=== PATIENT | male | born 1940 | race Caucasian/White ===

== ENCOUNTER → 2017-02-18 14:51 | Outpatient (CLI) | payer MEDICARE, BC | END | disposition home or self-care (01) | LOC: D.MRI 14:51 | DX: G31.84 Mild cognitive impairment of uncertain or unknown etiology (principal) ==

== ENCOUNTER → 2019-11-29 12:25 | Outpatient (CLI) | payer MEDICARE, BC ==
[2019-08-12 10:07] VITALS: BMI 23.1
[~2019-11-29 12:25] MED LIST: BAYER CHEWABLE81 MG PO; HYDROCODON-ACE1 EAC7 PO; NAMENDA10 MG PO; NAMZARIC PO; PRAVACHOL20 MG PO; VIT D 3 PO
== END | disposition home or self-care (01) ==
LOC: D.CT 12:25
PROVIDERS: ATTEND Family Medicine
DX: S06.5X0A Traumatic subdural hemorrhage without loss of consciousness, initial encounter (principal)

== ENCOUNTER 2020-01-27 11:21 | Emergency (ER) | payer MEDICARE, BC ==
[2019-08-12 10:07] VITALS: Ht 185.4 cm; Wt 77.3 kg
[~2020-01-27] VITALS: Ht 185.4 cm; Wt 77.3 kg
[2020-01-27 12:51] LABS: BASOPHILS 0.2 % (0-2); EOSINOPHILS 0.1 % (0-7); HEMATOCRIT 48.4 % (42.0-54.0); HEMOGLOBIN 16.3 g/dL (13.5-17.5); IMMATURE GRANULOCYTES 0.2 % (0-5); LYMPHOCYTES 5.7 % (15-50); MCH 30.8 pg (26.0-34.0); MCHC 33.7 g/dL (31.0-37.0); MCV 91.3 fL (80.0-100.0); MEAN PLATELET VOLUME 10.3 fL (7.4-10.4); MONOCYTES 3.7 % (2-11); NEUTROPHILS 90.1 % (40-80); PLATELET COUNT 187 10x3/uL (130-400); RDW 12.7 % (11.5-14.5); WBC 10.3 10x3/uL (4.8-10.8)
[2020-01-27 12:59] LABS: ANION GAP 11.4 mmol/L (8-16); CALCIUM 9.3 mg/dL (8.5-10.1); CARBON DIOXIDE 29.7 mmol/L (21.0-32.0); CREATININE - SERUM 1.2 mg/dL (0.6-1.3); POTASSIUM - SERUM 4.1 mmol/L (3.5-5.1)
[2020-01-27 13:05] LABS: BILIRUBIN - TOTAL 0.75 mg/dL (0.2-1.3); PROTEIN - SERUM 7.3 g/dL (6.4-8.2)
[2020-01-27 13:12] LABS: BILIRUBIN NEGATIVE (NEGATIVE); GLUCOSE NEGATIVE (NEGATIVE); KETONE NEGATIVE (NEGATIVE); NITRITE NEGATIVE (NEGATIVE); UROBILINOGEN NORMAL (NORMAL)
[2020-01-27 13:15] LABS: BACTERIA FEW /hpf (NEGATIVE); EPITHELIAL CELLS 0-5 /hpf (0-5); RED CELLS - URINE 0-5 /hpf (0-5); WHITE CELLS - URINE OCC /hpf (NEGATIVE)
[2020-01-27] MEDS ORDERED: KEFLEX250 MG PO (14:30)
[2020-01-27 15:02] VITALS: BP 152/68
== END 2020-01-27 15:03 | disposition home or self-care (01) ==
LOC: D.ER 11:21
PROVIDERS: Family Medicine
DX: S01.81XA Laceration without foreign body of other part of head, initial encounter (principal); S02.2XXA Fracture of nasal bones, initial encounter for closed fracture; W19.XXXA Unspecified fall, initial encounter; Y93.9 Activity, unspecified; Y92.9 Unspecified place or not applicable

== ENCOUNTER 2020-11-04 10:58 | Emergency (ER) | payer MEDICARE, BC ==
[~2020-11-04] VITALS: Ht 185.4 cm; Wt 68.2 kg
[~2020-11-04 10:58] MED LIST changes: +KEFLEX250 MG PO
[2020-11-04 11:01] VITALS: Ht 185.4 cm; Wt 68.2 kg
[2020-11-04] MEDS ORDERED: BETAPACE 80 MG80 MG PO (11:04)
[2020-11-04 13:39] VITALS: BP 165/62
== END 2020-11-04 13:39 | disposition home or self-care (01) ==
LOC: D.ER 10:58
DX: G30.9 Alzheimer's disease, unspecified (principal); F02.80 Dementia in other diseases classified elsewhere, unspecified severity, without behavioral disturbance, psychotic disturbance, mood disturbance, and anxiety; R53.1 Weakness

== ENCOUNTER 2020-11-08 22:00 | Emergency (ER) | payer MEDICARE, BC ==
[~2020-11-08] VITALS: Ht 185.4 cm; Wt 68.2 kg
[~2020-11-08 22:00] MED LIST changes: +BETAPACE 80 MG80 MG PO
[2020-11-08 22:05] VITALS: Ht 185.4 cm; Wt 68.2 kg
[2020-11-08 22:40] LABS: BILIRUBIN NEGATIVE (NEGATIVE); KETONE NEGATIVE (NEGATIVE); NITRITE NEGATIVE (NEGATIVE); UROBILINOGEN NORMAL mg/dL (< 2)
[2020-11-08 22:41] LABS: UDS - AMPHET NEGATIVE QUAL (NEGATIVE); UDS - BARB NEGATIVE QUAL (NEGATIVE); UDS - BENZO NEGATIVE QUAL (NEGATIVE); UDS - COCAINE NEGATIVE QUAL (NEGATIVE); UDS - OPIATE NEGATIVE QUAL (NEGATIVE); UDS - PCP NEGATIVE QUAL (NEGATIVE); UDS - THC NEGATIVE QUAL (NEGATIVE)
[2020-11-08 22:52] LABS: BASOPHILS 0.1 % (0-2); EOSINOPHILS 0.1 % (0-7); HEMATOCRIT 43.7 % (42.0-54.0); HEMOGLOBIN 14.3 g/dL (13.5-17.5); IMMATURE GRANULOCYTES 0.2 % (0-5); LYMPHOCYTE ABS# 0.62 10x3/uL (1.32-3.57); MCHC 32.7 g/dL (31.0-37.0); MCV 91.6 fL (80.0-100.0); MEAN PLATELET VOLUME 9.6 fL (7.4-10.4); NEUTROPHIL ABS# 13.81 10x3/uL (1.78-5.38); NEUTROPHILS 88.6 % (40-80); PLATELET COUNT 201 10x3/uL (130-400); RBC 4.77 10x6/uL (4.20-6.10); WBC 15.6 10x3/uL (4.8-10.8)
[2020-11-08 23:04] LABS: CALC OSMOLALITY 281 mosm/kg (275-300); CALCIUM 8.8 mg/dL (8.5-10.1); CARBON DIOXIDE 28.2 mmol/L (21.0-32.0); CHLORIDE - SERUM 104 mmol/L (98-107); CREATININE - SERUM 1.1 mg/dL (0.6-1.3); GLUCOSE 104 mg/dL (74-106); POTASSIUM - SERUM 3.9 mmol/L (3.5-5.1); SODIUM 141 mmol/L (136-145); UREA NITROGEN 14 mg/dL (7-18); eGFR NON AFRICAN AMERICAN 68 mL/min (90-120)
[2020-11-08 23:06] LABS: APTT 35.3 SECONDS (22.8-39.4); INR 1.23 (0.85-1.17); PROTIME 14.3 SECONDS (11.6-15.0)
[2020-11-08 23:23] LABS: ALKALINE PHOSPHATASE 100 U/L (30-120); ALT (SGPT) 18 U/L (10-68); BILIRUBIN - TOTAL 0.88 mg/dL (0.2-1.3); CKMB 0.6 U/L (0.0-3.6); CREATINE KINASE 35 UL (21-232); PROTEIN - SERUM 6.6 g/dL (6.4-8.2); THYROID STIMULATING HORMONE 1.37 uIU/mL (0.36-3.74)
[2020-11-08 23:26] LABS: TROPONIN-I < 0.017 ng/mL (0.000-0.060)
[2020-11-09 01:22] VITALS: BP 161/76
[2020-11-09] MEDS ORDERED: NIASPAN500 MG PO (21:44)
[2020-11-09] MEDS ORDERED: NAMZARIC 7 MG-1 EACH PO (23:58)
== END 2020-11-09 00:37 | disposition home or self-care (01) ==
LOC: D.ER 22:00
PROVIDERS: Family Medicine
DX: R53.83 Other fatigue (principal); G30.9 Alzheimer's disease, unspecified; F02.80 Dementia in other diseases classified elsewhere, unspecified severity, without behavioral disturbance, psychotic disturbance, mood disturbance, and anxiety

== ENCOUNTER 2020-11-09 15:48 | Inpatient (IN) | payer MEDICARE, BC ==
[~2020-11-09] VITALS: Ht 185.4 cm; Wt 66.0 kg
[2020-11-09 16:39] LABS: BASOPHILS 0.1 % (0-2); EOSINOPHILS 0.1 % (0-7); HEMOGLOBIN 14.8 g/dL (13.5-17.5); IMMATURE GRANULOCYTES 0.3 % (0-5); LYMPHOCYTE ABS# 0.34 10x3/uL (1.32-3.57); MCH 29.8 pg (26.0-34.0); MCHC 32.9 g/dL (31.0-37.0); MCV 90.7 fL (80.0-100.0); MEAN PLATELET VOLUME 9.8 fL (7.4-10.4); MONOCYTES 6.6 % (2-11); NEUTROPHIL ABS# 15.16 10x3/uL (1.78-5.38); NEUTROPHILS 90.9 % (40-80); PLATELET COUNT 190 10x3/uL (130-400); RBC 4.96 10x6/uL (4.20-6.10); RDW 13.1 % (11.5-14.5); WBC 16.7 10x3/uL (4.8-10.8)
[2020-11-09 16:45] LABS: INR 1.32 (0.85-1.17); PROTIME 15.2 SECONDS (11.6-15.0)
[2020-11-09 16:46] LABS: APTT 36.6 SECONDS (22.8-39.4)
[2020-11-09 16:48] LABS: CALC OSMOLALITY 274 mosm/kg (275-300); CALCIUM 8.8 mg/dL (8.5-10.1); CARBON DIOXIDE 29.3 mmol/L (21.0-32.0); CHLORIDE - SERUM 99 mmol/L (98-107); CREATININE - SERUM 1.1 mg/dL (0.6-1.3); GLUCOSE 117 mg/dL (74-106); POTASSIUM - SERUM 3.6 mmol/L (3.5-5.1); SODIUM 137 mmol/L (136-145); UREA NITROGEN 13 mg/dL (7-18); eGFR NON AFRICAN AMERICAN 68 mL/min (90-120)
[2020-11-09 17:03] LABS: ALBUMIN 3.1 g/dL (3.4-5.0); ALKALINE PHOSPHATASE 107 U/L (30-120); ALT (SGPT) 18 U/L (10-68); BILIRUBIN - TOTAL 1.29 mg/dL (0.2-1.3); CKMB 1.3 U/L (0.0-3.6); CREATINE KINASE 222 UL (21-232); PROTEIN - SERUM 6.9 g/dL (6.4-8.2)
[2020-11-09 17:05] LABS: TROPONIN-I < 0.017 ng/mL (0.000-0.060)
[2020-11-09 17:44] LABS: UDS - AMPHET NEGATIVE QUAL (NEGATIVE); UDS - BARB NEGATIVE QUAL (NEGATIVE); UDS - BENZO NEGATIVE QUAL (NEGATIVE); UDS - COCAINE NEGATIVE QUAL (NEGATIVE); UDS - OPIATE NEGATIVE QUAL (NEGATIVE); UDS - PCP NEGATIVE QUAL (NEGATIVE); UDS - THC NEGATIVE QUAL (NEGATIVE)
[2020-11-09 17:56] LABS: BILIRUBIN NEGATIVE (NEGATIVE); KETONE NEGATIVE (NEGATIVE); NITRITE POSITIVE (NEGATIVE); UROBILINOGEN NORMAL mg/dL (< 2)
[2020-11-09 18:06] LABS: WHITE CELLS - URINE 25-50 HPF (0-1)
[2020-11-09 18:07] LABS: BACTERIA MANY HPF (NONE SEEN); SQUAMOUS EPITHELIAL NONE SEEN HPF (0-4)
[2020-11-09 21:41] VITALS: BP 183/77
[2020-11-09] MEDS ORDERED: NIASPAN500 MG PO (21:44)
[2020-11-09] MEDS ORDERED: NAMZARIC 7 MG-1 EACH PO (23:58)
[2020-11-10 01:04] VITALS: BP 127/57
--- NOTE | 2020-11-10 04:22 | NUR ---
TEMP 100.4 - PT UNABLE TO SWALLOW PILLS. GAVE PT TYLENOL 650 MG CRUSHED IN APPLESAUCE. PT TOLERATED WELL. PT INCONTINENT OF BLADDER. BED CHANGED. WILL CONTINUE TO MONITOR. AT BEDSIDE.
[2020-11-10 04:51] VITALS: BMI 19.2
[2020-11-10 05:25] VITALS: BP 147/56
[2020-11-10 06:41] LABS: BASOPHILS 0.1 % (0-2); EOSINOPHILS 0 % (0-7); HEMATOCRIT 38.3 % (42.0-54.0); HEMOGLOBIN 12.6 g/dL (13.5-17.5); IMMATURE GRANULOCYTES 0.2 % (0-5); LYMPHOCYTE ABS# 0.47 10x3/uL (1.32-3.57); LYMPHOCYTES 3.7 % (15-50); MCH 29.6 pg (26.0-34.0); MCHC 32.9 g/dL (31.0-37.0); MCV 90.1 fL (80.0-100.0); MEAN PLATELET VOLUME 10.3 fL (7.4-10.4); MONOCYTES 4.3 % (2-11); NEUTROPHIL ABS# 11.49 10x3/uL (1.78-5.38); NEUTROPHILS 91.7 % (40-80); PLATELET COUNT 182 10x3/uL (130-400); RBC 4.25 10x6/uL (4.20-6.10); RDW 13.2 % (11.5-14.5)
[2020-11-10 06:42] LABS: WBC 12.5 10x3/uL (4.8-10.8)
[2020-11-10 06:50] LABS: APTT 39.9 SECONDS (22.8-39.4); INR 1.43 (0.85-1.17); PROTIME 16.2 SECONDS (11.6-15.0)
[2020-11-10 07:20] LABS: ALBUMIN 2.5 g/dL (3.4-5.0); ALKALINE PHOSPHATASE 91 U/L (30-120); ALT (SGPT) 16 U/L (10-68); BILIRUBIN - TOTAL 0.85 mg/dL (0.2-1.3); CALC OSMOLALITY 270 mosm/kg (275-300); CALCIUM 8.3 mg/dL (8.5-10.1); CARBON DIOXIDE 25.1 mmol/L (21.0-32.0); CHLORIDE - SERUM 101 mmol/L (98-107); CKMB 0.5 U/L (0.0-3.6); CREATINE KINASE 167 UL (21-232); GLUCOSE 94 mg/dL (74-106); POTASSIUM - SERUM 3.5 mmol/L (3.5-5.1); PRO BNP 1546 pg/mL (0-450); PROTEIN - SERUM 5.9 g/dL (6.4-8.2); SODIUM 136 mmol/L (136-145); UREA NITROGEN 11 mg/dL (7-18); eGFR NON AFRICAN AMERICAN 76 mL/min (90-120)
[2020-11-10 11:28] VITALS: BP 122/52
--- NOTE | 2020-11-10 13:40 | HP ---
PATIENT: MELITA BALDERRAMA MEDICAL RECORD: [id number] ACCOUNT: [id number] LOCATION:D.[id number] : 40 ADMISSION DATE: 11/09/20 PCP: DONALDO LIZAMA MD HISTORY AND PHYSICAL EXAMINATION DATE OF ADMISSION: 11/09/2020 CHIEF COMPLAINT: Fever, altered mental status. HISTORY OF PRESENT ILLNESS: This is an 80-year-old white male brought in by his . This is the third ER visit in approximately 1 week. The workup in the ER showed yellow cloudy urine with 1+ blood, positive nitrite and leukocyte esterase and many bacteria, and no epithelial cells. CBC showed a white count of 16,700. Rest of the lab was fairly normal. Chest x-ray was unremarkable. CT of abdomen and pelvis with IV contrast showed prostatomegaly and moderate thickening of the urinary bladder consistent with cystitis, he is admitted. His states he is looking and feeling better already. PAST MEDICAL HISTORY: Dementia, hypertension, hyperlipidemia, benign prostatic hypertrophy, and atrial fibrillation. PAST SURGICAL HISTORY: Hernia repair and right knee surgery. HOME MEDICATIONS: Sotalol 80 mg 1/2 twice a day, pravastatin 20 mg once a day, niacin daily, aspirin daily, Namzaric capsule once a day. ALLERGIES: SULFA. 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 HABITS: No tobacco, alcohol or drugs. FAMILY HISTORY: Significant for hypertension. REVIEW OF SYSTEMS: GENERAL: No major weight changes. HEENT: No particular sinus or allergy problems. RESPIRATORY No history of asthma, emphysema or pneumonia. CARDIAC: He has history of atrial fibrillation, no medicines. GASTROINTESTINAL: No diarrhea, constipation, or heartburn. GENITOURINARY: He has history of BPH. MUSCULOSKELETAL: No significant joint aches and pains. NEUROLOGICAL: No migraines. No seizures, but he does have dementia. PSYCHIATRIC: No depression or melancholia, but he does have dementia. PHYSICAL EXAMINATION: VITAL SIGNS: Temperature in the ER when he got there was 101.5, blood pressure was 178/78. Earlier this morning at 5:25, his temperature was 100.4, currently his temperature is 97.9, pulse 77, respirations 19, blood pressure 122/52, O2 sat 97%. GENERAL: He is awake. He is alert. He has slowed mentation consistent with dementia. HEENT: Grossly within normal limits. NECK: Supple. No JVD or bruit. HISTORY AND PHYSICAL [id number] MELITA BALDERRAMA HEART: Regular rate and rhythm at this time. LUNGS: Fairly clear. ABDOMEN: Soft, flat, nontender. EXTREMITIES: No edema. NEUROLOGIC: Cranial nerves are grossly intact. LABORATORY DATA: Urinalysis shows yellow cloudy urine with 1+ blood, positive nitrite, 1+ leukocyte esterase, 5-10 red blood cells, 25-50 white blood cells, no epithelial cells and many bacteria. Urine culture is obtained. Urine drug screen is negative. CBC with a white count of 16,700, hemoglobin 14.8, hematocrit 45.6, 90% polys. Basic metabolic panel: Sodium 137, potassium 3.6, chloride 99, CO2 29.3, BUN 13, creatinine 1.1, glucose 117, calcium 8.8. Liver functions are normal. INR 1.32. Lactic acid 1.6. Troponin less than 0.017. Magnesium 2.6. DIAGNOSTIC DATA: Chest x-ray shows nothing acute. CT abdomen and pelvis with IV contrast shows prostatomegaly. There is moderate thickening of the urinary bladder. EKG, right bundle branch block. ASSESSMENT: 1. Urinary tract infection causing encephalopathy. 2. Cystitis. 3. Underlying dementia. 4. History of BPH. PLAN: He is started on IV antibiotics. Blood and urine cultures are obtained. We will check a PSA today. Other tests and procedures as warranted. TRANSINT:[id number] Voice Confirmation ID: [id number] DOCUMENT ID: [id number] TEDDY SALDANA MD at 1340 CC: [id number] DICTATION DATE: 11/10/20 1234 CLIENT LIAISON: 11/10/20 1316 ADM IN [place] [id number] [place] [address]
[2020-11-10 18:48] VITALS: BP 119/53
[2020-11-10 22:28] VITALS: BP 116/66
[2020-11-11 09:33] VITALS: BP 126/79
[2020-11-11 09:38] LABS: BASOPHILS 0.2 % (0-2); EOSINOPHILS 0.2 % (0-7); HEMATOCRIT 39.3 % (42.0-54.0); HEMOGLOBIN 12.7 g/dL (13.5-17.5); IMMATURE GRANULOCYTES 0.2 % (0-5); LYMPHOCYTE ABS# 0.31 10x3/uL (1.32-3.57); LYMPHOCYTES 6.1 % (15-50); MCH 29.5 pg (26.0-34.0); MCHC 32.3 g/dL (31.0-37.0); MCV 91.2 fL (80.0-100.0); MEAN PLATELET VOLUME 10.4 fL (7.4-10.4); MONOCYTES 6.5 % (2-11); NEUTROPHIL ABS# 4.43 10x3/uL (1.78-5.38); NEUTROPHILS 86.8 % (40-80); PLATELET COUNT 154 10x3/uL (130-400); RBC 4.31 10x6/uL (4.20-6.10); RDW 13.2 % (11.5-14.5)
[2020-11-11 09:43] LABS: WBC 5.1 10x3/uL (4.8-10.8)
[2020-11-11 09:54] LABS: ANION GAP 11.5 mmol/L (8-16); CALCIUM 8.2 mg/dL (8.5-10.1); CREATININE - SERUM 1.1 mg/dL (0.6-1.3); POTASSIUM - SERUM 3.5 mmol/L (3.5-5.1)
[2020-11-11 13:56] VITALS: BP 179/70
[2020-11-11 15:27] VITALS: Ht 185.4 cm; Wt 66.0 kg
[2020-11-11 17:05] VITALS: BP 134/68
[2020-11-11 20:00] VITALS: BP 166/69
[2020-11-12] VITALS: BP 142/76
[2020-11-12 04:00] VITALS: BP 134/66
--- NOTE | 2020-11-12 07:13 | NUR ---
PATIENT SPOUSE CAME TO DESK IRST THING THIS MORNING DURING REPORT AND STATE THAT PATIENT DOCTOR IS DR LIZAMA AND ALTHOUGH PATIENTIS ADMITTED TO DR SALDANA THE DOCTORS HAVE DIFFERENT THOUGHTS OF TREATING HER , STATES PATIENT DOES NOT TAKE NAMENDA OR ARICEPT AND SHE WILL TALK TO HIM ABOUT IT THIS MORNING. INFORMED PATIENT SPOUSE THAT BOTH DR SALDANA AND DR LIZAMA SHOULD BE HERE THIS MORNING AND WILL GLADLY SPEAK WITH HER
[2020-11-12 08:02] VITALS: BP 128/62
[2020-11-12 08:29] LABS: BASOPHILS 0 % (0-2); EOSINOPHILS 0 % (0-7); HEMATOCRIT 37.7 % (42.0-54.0); HEMOGLOBIN 12.3 g/dL (13.5-17.5); IMMATURE GRANULOCYTES 0.2 % (0-5); LYMPHOCYTE ABS# 0.54 10x3/uL (1.32-3.57); LYMPHOCYTES 11.1 % (15-50); MCH 29.2 pg (26.0-34.0); MCHC 32.6 g/dL (31.0-37.0); MCV 89.5 fL (80.0-100.0); MEAN PLATELET VOLUME 10.5 fL (7.4-10.4); MONOCYTES 7.2 % (2-11); NEUTROPHIL ABS# 3.95 10x3/uL (1.78-5.38); NEUTROPHILS 81.5 % (40-80); PLATELET COUNT 165 10x3/uL (130-400); RBC 4.21 10x6/uL (4.20-6.10); RDW 13.3 % (11.5-14.5); WBC 4.9 10x3/uL (4.8-10.8)
[2020-11-12 09:03] LABS: CALC OSMOLALITY 286 mosm/kg (275-300); CALCIUM 8.2 mg/dL (8.5-10.1); CARBON DIOXIDE 24.6 mmol/L (21.0-32.0); CHLORIDE - SERUM 108 mmol/L (98-107); CREATININE - SERUM 0.9 mg/dL (0.6-1.3); GLUCOSE 94 mg/dL (74-106); POTASSIUM - SERUM 3.9 mmol/L (3.5-5.1); SODIUM 143 mmol/L (136-145); UREA NITROGEN 18 mg/dL (7-18); eGFR NON AFRICAN AMERICAN 86 mL/min (90-120)
--- NOTE | 2020-11-12 10:33 | NUR ---
PATIENT TOLD SPUSE HE NEEDS TO USE RESTROOM AND ATTEMPTED TO GET OUT OF BED, EXPLAINED THAT I AM UNABLE TO GET HIM UP UNTIL PHYSIAL THERAPY EVALUATES HIM. PATIENT HAD ALEADY VOIDED, PLACED PATIENT ON BED CHERRY AND ASKED HIM TO CALL WHEN FINISHED, CAME BACK TO CHECK ON PATIENT 5 MINUTES LATER AND HE WAS ASLEEP, TOOK PATIENT OFF BEDPAN. CONTINUE WITH PLAN OF CARE
[2020-11-12 13:19] VITALS: BP 112/58
[2020-11-12 17:07] VITALS: BP 144/66
[2020-11-12 20:00] VITALS: BP 138/66
--- NOTE | 2020-11-12 20:00 | NUR ---
PT SITTING UP IN BED WITHOUT DISTRESS, AT BEDSIDE. PT WITH SLIGHT TEMP, TYLENOL GIVEN WHOLE IN APPLESAUCE WITH HS MEDS. DENIES OTHER NEEDS. CL IN REACH
--- NOTE | 2020-11-12 21:30 | NUR ---
PT INCONTINENT OF URINE. JUN CARE PROVIDED AND BRIEF CHANGED. AND PT DENY OTHER NEEDS. CL IN REACH
[2020-11-13 04:00] VITALS: BP 140/68
[2020-11-13 05:34] LABS: BASOPHILS 0.2 % (0-2); EOSINOPHILS 0.4 % (0-7); HEMATOCRIT 38.8 % (42.0-54.0); HEMOGLOBIN 12.4 g/dL (13.5-17.5); IMMATURE GRANULOCYTES 0.4 % (0-5); LYMPHOCYTE ABS# 0.71 10x3/uL (1.32-3.57); LYMPHOCYTES 13.1 % (15-50); MCH 29.2 pg (26.0-34.0); MEAN PLATELET VOLUME 10.2 fL (7.4-10.4); MONOCYTES 10.2 % (2-11); NEUTROPHIL ABS# 4.09 10x3/uL (1.78-5.38); NEUTROPHILS 75.7 % (40-80); PLATELET COUNT 178 10x3/uL (130-400); RBC 4.24 10x6/uL (4.20-6.10); RDW 13.3 % (11.5-14.5); WBC 5.4 10x3/uL (4.8-10.8)
[2020-11-13 05:46] LABS: ANION GAP 11.2 mmol/L (8-16); CALCIUM 8.2 mg/dL (8.5-10.1); CARBON DIOXIDE 28.9 mmol/L (21.0-32.0); CREATININE - SERUM 1.1 mg/dL (0.6-1.3); POTASSIUM - SERUM 4.1 mmol/L (3.5-5.1)
[2020-11-13 05:47] LABS: MCV 91.5 fL (80.0-100.0)
--- NOTE | 2020-11-13 07:51 | NUR ---
RECIEVED BEDSIDE REPORT, AROUSES TO VOICE. AT BEDSIDE. INCONTINENT OF BOWEL AND BLADDER, CHANGED DIRTY BED LINENS. WANTS TO ATTEMPT A BED CHERRY. DENIES FURTHER NEEDS AT THIS TIME. BED LOW POSITION, CALL LIGHT IN REACH. WILL CONTINUE TO MONITOR.
[2020-11-13 08:28] VITALS: BP 140/65
[2020-11-13 12:54] VITALS: BP 125/60
[2020-11-13 16:23] VITALS: BP 118/63
--- NOTE | 2020-11-13 18:09 | NUR ---
REHAB PRESCREEN RECEIVED. PATIENT LOOKS LIKE A GOOD CANDIDATE FOR INPATIENT REAHB. WE WILL UNFORTUNATELY NOT HAVE ANOTHER BED OPEN UNTIL WEDNESDAY, BUT WILL CONTINUE TO WATCH AND PLAN TO ACCEPT ON WEDNESDAY IF THIS IS WHAT THE PATIENT AND HIS WOULD LIKE. THANK YOU FOR THE REFERRAL. JACOB RICARDO RN CLINICAL LIAISON, INPATIENT REHAB.
[2020-11-13 20:00] VITALS: BP 124/63
--- NOTE | 2020-11-13 20:00 | NUR ---
PT SITTING UP IN BED WITHOUT DISTRESS, AT BEDSIDE. GAVE PT TYLENOL FOR TEMP. PT TOOK MEDS WHOLE IN APPLESAUCE WITHOUT DIFFICULTY. DENIES OTHER NEEDS. CL IN REACH, BED ALARM ON
[2020-11-14] VITALS: BP 117/63
[2020-11-14 04:00] VITALS: BP 126/60
[2020-11-14 06:24] LABS: BASOPHILS 0.3 % (0-2); EOSINOPHILS 0.7 % (0-7); HEMATOCRIT 38.4 % (42.0-54.0); HEMOGLOBIN 12.2 g/dL (13.5-17.5); IMMATURE GRANULOCYTES 0.3 % (0-5); LYMPHOCYTE ABS# 0.66 10x3/uL (1.32-3.57); LYMPHOCYTES 9.8 % (15-50); MCHC 31.8 g/dL (31.0-37.0); MCV 91.4 fL (80.0-100.0); MONOCYTES 9.8 % (2-11); NEUTROPHILS 79.1 % (40-80); PLATELET COUNT 190 10x3/uL (130-400); RDW 13.3 % (11.5-14.5); WBC 6.7 10x3/uL (4.8-10.8)
[2020-11-14 06:33] LABS: CALC OSMOLALITY 285 mosm/kg (275-300); CALCIUM 8.5 mg/dL (8.5-10.1); CARBON DIOXIDE 28.9 mmol/L (21.0-32.0); CHLORIDE - SERUM 107 mmol/L (98-107); CREATININE - SERUM 0.9 mg/dL (0.6-1.3); GLUCOSE 94 mg/dL (74-106); SODIUM 142 mmol/L (136-145); UREA NITROGEN 22 mg/dL (7-18); eGFR NON AFRICAN AMERICAN 86 mL/min (90-120)
--- NOTE | 2020-11-14 07:30 | NUR ---
PATIENT SLEEPING. AT BEDSIDE. ASSESSMENT COMPLETE. REQUESTED AND GIVEN ICE WATER. DENIES FURTHER NEEDS. BED LOW. CALL HINES AND PERSONAL ITEMS IN REACH. WILL CONTINUE TO MONITOR.
--- NOTE | 2020-11-14 07:33 | MORECARE ---
CASE MANAGEMENT DISCHARGE SUMMARY PATIENT: MELITA BALDERRAMA UNIT: [id number] ADM DATE: 11/09/20 AGE: 80 : 40 SEX: M ROOM/BED: D.[facility] AUTHOR: DREW ROWLAND PHYSICIAN: REFERRING PHYSICIAN: TEDDY SALDANA MD DATE OF SERVICE: 11/14/20 Case Management Discharge Planning Summary DCP REVIEW SUMMARY ANTICIPATED D/C DATE: EXPECTED LOS : CASE STATUS: DCP Initiated INITIAL REVIEW: 11/09/2020 INITIAL REVIEWER: Henna Gasca FINAL DISCHARGE DISPOSITION: : FINAL REVIEWER: FINAL REVIEW DATE: DCP Focus Questions & Answers QUESTION: ANSWER : PATIENT: MELITA BALDERRAMA ENCOUNTER: [id number] MEDICAL RECORD#: [id number] ADMISSION DATE: 11/09/2020 DISCHARGE DATE: ATTENDING MD: TEDDY JOHNSON : AGE: 80 MARITAL STATUS: M DC PLAN ID: [id number] FACILITY: [facility] PRINTED ON: 11/14/20 7:33 CT All edits/amendments must be made on the electronic document DICTATION DATE: 11/14/20731 UNLOADING CHECKER: DM 11/14/20731 RPT#: [id number] DC DATE: STATUS: ADM IN [facility] [address] [place] [address] END OF REPORT
--- NOTE | 2020-11-14 07:44 | MORECARE ---
CASE MANAGEMENT DISCHARGE SUMMARY PATIENT: MELITA BALDERRAMA UNIT: [id number] ADM DATE: 11/09/20 AGE: 80 : 40 SEX: M ROOM/BED: D.2234 AUTHOR: KASHIF,DOC PHYSICIAN: REFERRING PHYSICIAN: TEDDY SALDANA MD DATE OF SERVICE: 11/14/20 Case Management Discharge Planning Summary COMMENTS ENTERED DATE: 11/14/20 7:35 CT COMMENT TYPE: Discharge Planning REVIEWER: Henna Gasca PCP: DR ALDA ALCARAZ [facility] ON 7N ENTERED DATE: 11/14/20 7:29 CT COMMENT TYPE: Discharge Planning REVIEWER: Henna Gasca LATE ENTRY 11/13/20 @ 1830 CM met with patient & spouse Cielo to complete initial dc planning assessment. CM educated patient on the CM role and verbal consent given by patient to complete assessment. Patient lives at home with his where he is partially dependent with his ADL's. The patient will need some rehab prior to being discharged & knows this is the safest discharge plan. CM discussed availability of home health, rehab services, and medical equipment. [facility] in addition to having [facility] for personal care 3 x a week for 4 hours each day. He has fallen recently, but usually is pretty independent per his . He has a walker, but does not remember to get it to use it. There is a loan closet where they live so they have access to anything that they might need. There are a flight of stairs to get to his shower. Cielo and I spoke at length about their options. She would like him to go to rehab if he is accepted. [facility], if he is not accepted there she would like a referral sent to [facility]. The CURTIS has been obtained and the IMM also explained and given. I will send a referral to [facility] and notify Th[facility] about the referral. CM will continue to follow and will assist as needed with dc plans/needs. DCP REVIEW SUMMARY ANTICIPATED D/C DATE: EXPECTED LOS : CASE STATUS: DCP Initiated INITIAL REVIEW: 11/09/2020 INITIAL REVIEWER: Henna Gasca FINAL DISCHARGE DISPOSITION: : FINAL REVIEWER: FINAL REVIEW DATE: DCP Focus Questions & Answers QUESTION: ANSWER : PATIENT: MELITA BALDERRAMA ENCOUNTER: [id number] MEDICAL RECORD#: [id number] ADMISSION DATE: 11/09/2020 DISCHARGE DATE: ATTENDING MD: TEDDY JOHNSON : AGE: 80 MARITAL STATUS: M DC PLAN ID: [id number] FACILITY: [facility] PRINTED ON: 11/14/20 7:44 CT All edits/amendments must be made on the electronic document DICTATION DATE: 11/14/20743 SOFTWARE TRAINER: ADY 11/14/2044 RPT#: [id number] DC DATE: STATUS: ADM IN [facility] [address] [place] [address] END OF REPORT
[2020-11-14] MEDS ORDERED: ROCEPHIN 1 GM/D51 G1 IV (08:07)
--- NOTE | 2020-11-14 08:53 | NUR ---
IS AT SINK PROVIDED TO PATIENT. EDUCATION PROVIDED TO PATIENT AND ON USE OF IS. PATIENT DEMONSTRATED UNDERSTANDING. VERBALIZED UNDERSTANDING. MEDS PROVIDED TO PATIENT WHOLE IN PER REQUEST. PATIENT AND DENY NEEDS. WILL CONTINUE TO MONITOR.
[2020-11-14 09:19] VITALS: BP 112/64
--- NOTE | 2020-11-14 11:21 | NUR ---
OT NOTE: PT PERFORMED BETTER TODAY. BED MOB WITH MOD ASSIST; EOB SITTING FOR APPROX 5 MIN.. ABLE TO WASH FACE AND HANDS WITH SET UP; DONNED SOCKS WITH MAX ASSIST; AMB WITH WALKER AND MIN ASSIST AND ASSIST WITH EQUIP MGMT X 100 FT.. CONSTANT CUES FOR WALKER MGMT AND POSITIONING. TRANSFER TO CHAIR WITH MOD ASSIST; TOLERATING UP IN CHAIR WELL YVES URIOSTEGUI, OTR/L [phone]
[2020-11-14 12:50] VITALS: BP 111/53
--- NOTE | 2020-11-14 13:32 | NUR ---
PATIENT REQUESTING TO GET BACK IN BED. [facility] MADE AWARE.
--- NOTE | 2020-11-14 14:26 | MORECARE ---
CASE MANAGEMENT DISCHARGE SUMMARY PATIENT: MELITA BALDERRAMA UNIT: [id number] ADM DATE: 11/09/20 AGE: 80 : 40 SEX: M ROOM/BED: D.2234 AUTHOR: KASHIF,DOC PHYSICIAN: REFERRING PHYSICIAN: TEDDY SALDANA MD DATE OF SERVICE: 11/14/20 Case Management Discharge Planning Summary COMMENTS ENTERED DATE: 11/14/20 14:11 CT COMMENT TYPE: Discharge Planning REVIEWER: Henna Gasca Patient will be discharged to [facility] inpatient rehab today. They will pick him up at 1600 his is in the room and is aware of the discharge cm to follow as needed ENTERED DATE: 11/14/20 7:35 CT COMMENT TYPE: Discharge Planning REVIEWER: Henna Gasca PCP: DR LIZAMA [facility] ON 7N ENTERED DATE: 11/14/20 7:29 CT COMMENT TYPE: Discharge Planning REVIEWER: Henna Gasca LATE ENTRY 11/13/20 @ 1830 CM met with patient & spouse Cielo to complete initial dc planning assessment. CM educated patient on the CM role and verbal consent given by patient to complete assessment. Patient lives at home with his where he is partially dependent with his ADL's. The patient will need some rehab prior to being discharged & knows this is the safest discharge plan. CM discussed availability of home health, rehab services, and medical equipment. [facility] been [facility] in addition to having [facility] for personal care 3 x a week for 4 hours each day. He has fallen recently, but usually is pretty independent per his . He has a walker, but does not remember to get it to use it. There is a loan closet where they live so they have access to anything that they might need. There are a flight of stairs to get to his shower. Cielo and I spoke at length about their options. She would like him to go to rehab if he is accepted. [facility] for [facility], if he is not accepted there she would like a referral sent to [facility]. The CURTIS has been obtained and the IMM also explained and given. I will send a referral to [facility] and notify [facility] about the referral. CM will continue to follow and will assist as needed with dc plans/needs. DCP REVIEW SUMMARY ANTICIPATED D/C DATE: EXPECTED LOS : CASE STATUS: DCP Initiated INITIAL REVIEW: 11/09/2020 INITIAL REVIEWER: Henna Gasca FINAL DISCHARGE DISPOSITION: : FINAL REVIEWER: FINAL REVIEW DATE: DCP Focus Questions & Answers QUESTION: ANSWER : PATIENT: MELITA BALDERRAMA ENCOUNTER: [id number] MEDICAL RECORD#: [id number] ADMISSION DATE: 11/09/2020 DISCHARGE DATE: ATTENDING MD: TEDDY JOHNSON : AGE: 80 MARITAL STATUS: M DC PLAN ID: [id number] FACILITY: [facility] PRINTED ON: 11/14/20 14:25 CT All edits/amendments must be made on the electronic document DICTATION DATE: 11/14/20 142 MANAGER PORT: DM 11/14/20 142 RPT#: [id number] DC DATE: STATUS: ADM IN [facility] [address] [place] [address] END OF REPORT
--- NOTE | 2020-11-14 14:57 | NUR ---
ALL DISCHARGE INSTRUCTIONS COVERED WITH PATIENT SPOUSE. WRITTEN AND VERBAL. NO PRINTED RX TO BE SENT WITH PT. PIV TO REMAIN FOR IV ABX AT REHAB FACILITY. PT SPOUSE DENIES FURTHER QUESTIONS/CONCERNS/NEEDS AT THIS TIME. ALL DISCHARGE PAPERS SIGNED BY PT SPOUSE. PT SPOUSE REQUESTS TO LET PT SLEEP "A LITTLE BIT LONGER" AND WILL NOTIFY STAFF VIA CALL LIGHT WHEN READY FOR ASSISTANCE WITH PT DRESSING. PT SPOUSE INFORMED OF ESTIMATED TIME OF TRANSPORT TO [facility]. PT SPOUSE DENIES QUESTIONS/CONCERNS/NEEDS. WILL NOTIFY SHIFT NURSE OF COMPLETION OF DISCHARGE INSTRUCTIONS.
--- NOTE | 2020-11-14 15:00 | NUR ---
REPORT CALLED TO REHAB NURSE.
--- NOTE | 2020-11-14 15:04 | NUR ---
DC EDUCATION PROVIDED BOTH WRITTEN AND VERBAL TO PATIENT AND AT BEDSIDE. BOTH VERBALIZE UNDERSTANDING AND DENY FURTHER QUESTIONS. IV LEFT IN PLACE PER REQUEST OF REHAB NURSE D/T PATIENT TO CONTINUE TO RECEIVE IV ABX. WAITING RIDE.
--- NOTE | 2020-11-15 14:12 | MORECARE ---
CASE MANAGEMENT DISCHARGE SUMMARY PATIENT: MELITA BALDERRAMA UNIT: [id number] ADM DATE: 11/09/20 AGE: 80 : 40 SEX: M ROOM/BED: D.2234 AUTHOR: KASHIF,DOC PHYSICIAN: REFERRING PHYSICIAN: TEDDY SALDANA MD DATE OF SERVICE: 11/15/20 Case Management Discharge Planning Summary COMMENTS ENTERED DATE: 11/14/20 14:11 CT COMMENT TYPE: Discharge Planning REVIEWER: Henna Gasca Patient will be discharged to [facility] inpatient rehab today. They will pick him up at 1600 his is in the room and is aware of the discharge cm to follow as needed ENTERED DATE: 11/14/20 7:35 CT COMMENT TYPE: Discharge Planning REVIEWER: Henna Gasca PCP: DR LIZAMA [facility] ON 7N ENTERED DATE: 11/14/20 7:29 CT COMMENT TYPE: Discharge Planning REVIEWER: Henna Gasca LATE ENTRY 11/13/20 @ 1830 CM met with patient & spouse Cielo to complete initial dc planning assessment. CM educated patient on the CM role and verbal consent given by patient to complete assessment. Patient lives at home with his where he is partially dependent with his ADL's. The patient will need some rehab prior to being discharged & knows this is the safest discharge plan. CM discussed availability of home health, rehab services, and medical equipment. He has been going [facility] weekly in addition to having [facility] for personal care 3 x a week for 4 hours each day. He has fallen recently, but usually is pretty independent per his . He has a walker, but does not remember to get it to use it. There is a loan closet where they live so they have access to anything that they might need. There are a flight of stairs to get to his shower. Cielo and I spoke at length about their options. She would like him to go to rehab if he is accepted. [facility] for [facility], if he is not accepted there she would like a referral sent to [facility]. The CURTIS has been obtained and the IMM also explained and given. I will send a referral to [facility] and notify Thao about the referral. CM will continue to follow and will assist as needed with dc plans/needs. DCP REVIEW SUMMARY ANTICIPATED D/C DATE: EXPECTED LOS : CASE STATUS: DCP Initiated INITIAL REVIEW: 11/09/2020 INITIAL REVIEWER: Henna Gasca FINAL DISCHARGE DISPOSITION: : FINAL REVIEWER: FINAL REVIEW DATE: DCP Focus Questions & Answers QUESTION: ANSWER : PATIENT: MELITA BALDERRAMA ENCOUNTER: [id number] MEDICAL RECORD#: [id number] ADMISSION DATE: 11/09/2020 DISCHARGE DATE: 11/14/2020 ATTENDING MD: TEDDY JOHNSON : AGE: 80 MARITAL STATUS: M DC PLAN ID: [id number] FACILITY: [facility] PRINTED ON: 11/15/20 14:12 CT All edits/amendments must be made on the electronic document DICTATION DATE: 11/15/201411 PRINT COLOR MATCHER: DM 11/15/20 141 RPT#: [id number] DC DATE:11/14/20 STATUS: DIS IN [facility] [address] [place] [address] END OF REPORT
== END 2020-11-14 16:41 | DRG 689 ==
LOC: D.ER 15:48 → D.MS 20:18
PROVIDERS: Family Medicine; ADMIT Family Medicine; ATTEND Family Medicine
DX: N30.90 Cystitis, unspecified without hematuria (principal); G93.41 Metabolic encephalopathy; I10 Essential (primary) hypertension; E78.5 Hyperlipidemia, unspecified; I48.91 Unspecified atrial fibrillation; N40.0 Benign prostatic hyperplasia without lower urinary tract symptoms; G30.9 Alzheimer's disease, unspecified; F02.80 Dementia in other diseases classified elsewhere, unspecified severity, without behavioral disturbance, psychotic disturbance, mood disturbance, and anxiety